=== PATIENT | female | born 2000 | race Caucasian/White ===

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

== ENCOUNTER → 2021-03-24 | Outpatient (CLI) | payer SELFPAY, OTHER, MEDICAID ==
[~2021-03-24] MED LIST changes: +ELIM5CRE2 TOP
== END ==
LOC: M LABSMTC 10:11
PROVIDERS: ATTEND Pediatrics
DX: Z20.822 Contact with and (suspected) exposure to COVID-19 (principal)

== ENCOUNTER → 2021-07-21 | Outpatient (REF) | payer OTHER ==
[2021-07-21 12:36] LABS: BASO % 0.4 % (0.0-1.0); EOS % 0.5 % (0.0-3.0); HEMATOCRIT 40.9 % (36.0-47.0); HEMOGLOBIN 13.3 g/dl (12.0-15.5); LYMPH # 2.4 10^3/uL (1.5-5.0); LYMPH % 28.6 % (24.0-44.0); MEAN CORPUSCULAR HEMOGLOBIN 30.9 pg (27.0-33.0); MEAN CORPUSCULAR HGB CONC 32.5 g/dl (32.0-36.5); MEAN CORPUSCULAR VOLUME 94.9 fl (80.0-96.0); MONO # 0.6 10^3/uL (0.0-0.8); MONO % 7.1 % (2.0-8.0); NEUTROPHILS # 5.3 10^3/uL (1.5-8.5); PLATELET COUNT, AUTOMATED 325 10^3/uL (150-450); RED BLOOD COUNT 4.31 10^6/uL (4.00-5.40); WHITE BLOOD COUNT 8.3 10^3/uL (4.0-10.0)
[2021-07-21 17:05] LABS: ALBUMIN 3.9 GM/DL (3.2-5.2); ALT/SGPT 16 U/L (12-78); BILIRUBIN,TOTAL 0.6 MG/DL (0.2-1.0); BLOOD UREA NITROGEN 5 MG/DL (7-18); CALCIUM LEVEL 9.3 MG/DL (8.5-10.1); CARBON DIOXIDE LEVEL 25 MEQ/L (21-32); CHLORIDE LEVEL 104 MEQ/L (98-107); CREATININE FOR GFR 0.54 MG/DL (0.55-1.30); GLUCOSE, FASTING 89 MG/DL (70-100); HCG, SERUM QUANTITATIVE 43157 MIU/ML; POTASSIUM SERUM 4.2 MEQ/L (3.5-5.1); SODIUM LEVEL 138 MEQ/L (136-145); TOTAL PROTEIN 7.4 GM/DL (6.4-8.2)
== END ==
LOC: M SFHCADAM 09:54
PROVIDERS: ATTEND Family Medicine
DX: Z00.00 Encounter for general adult medical examination without abnormal findings (principal); N92.6 Irregular menstruation, unspecified

== ENCOUNTER → 2021-08-18 | Outpatient (CLI) | payer OTHER ==
[2021-08-18 18:11] LABS: HEMATOCRIT 36.6 % (36.0-47.0); HEMOGLOBIN 12.3 g/dl (12.0-15.5); MEAN CORPUSCULAR HEMOGLOBIN 31.6 pg (27.0-33.0); MEAN CORPUSCULAR HGB CONC 33.6 g/dl (32.0-36.5); MEAN CORPUSCULAR VOLUME 94.1 fl (80.0-96.0); PLATELET COUNT, AUTOMATED 313 10^3/uL (150-450); RED BLOOD COUNT 3.89 10^6/uL (4.00-5.40); WHITE BLOOD COUNT 10.6 10^3/uL (4.0-10.0)
[2021-08-18 19:14] LABS: HEPATITIS C VIRUS ABY INDEX < 0.0 INDEX (<0.8); HIV 1&2 SCREEN CENTAUR NEGATIVE (NEGATIVE)
[2021-08-18 19:39] LABS: GC DNA AMPLIFICATION NEGATIVE (NEGATIVE)
== END ==
LOC: M PLALAB 14:19
PROVIDERS: ATTEND Obstetrics & Gynecology
DX: Z34.90 Encounter for supervision of normal pregnancy, unspecified, unspecified trimester (principal)

== ENCOUNTER → 2021-10-16 | Outpatient (CLI) | payer OTHER ==
--- NOTE | 2021-10-16 11:02 | REP ---
INDICATION: ANATOMY COMPARISON: None. TECHNIQUE: Transabdominal obstetrical ultrasound with color Doppler evaluation. FINDINGS: Examination demonstrates a single live intrauterine in breech presentation. motion is identified by technologist. Placenta is noted posterior and grade 1 without evidence for placenta previa or abruption. Amniotic fluid volume is normal. Cervix measures 3.7 cm in length and appears closed.. Selected gestational age: Nineteen weeks 4 days with TALI 03/08/20[birth year]. Gestational age by current measurements 19 weeks 0 days with TALI is 03/12/2022. FHR equals 149 beats per minute. BPD: 4.1 cm; 18 weeks 3 days; is 21% HC: 16.6 cm; 19 weeks 2 days; 41% AC: 13.9 cm; there is 19 weeks 2 days; 44% FL: 3.0 cm; 19 weeks 3 days; 45% HL: 2.8 cm; 19 weeks 1 day; 43% HC/AC: 1.19 Estimated weight 285 grams (31stpercentile). Anatomical assessment demonstrates normal structures including cranium, choroid plexus, cavum, cerebellum/posterior fossa, facial features, lungs, four-chamber heart/ventricular outflow tracts, diaphragm, stomach, cord insertion/three-vessel cord, kidneys/bladder, spine, and extremities. IMPRESSION: Single live intrauterine in breech presentation demonstrating appropriate estimated weight. Anatomical assessment is complete and normal. <Electronically signed by Leroy Fuentes > 10/16/21 4712
== END ==
LOC: M WHC 08:55
PROVIDERS: ATTEND Obstetrics & Gynecology
DX: Z34.02 Encounter for supervision of normal first pregnancy, second trimester (principal); Z3A.19 19 weeks gestation of pregnancy

== ENCOUNTER → 2021-12-08 | Outpatient (CLI) | payer OTHER | LOC: M PLALAB 10:50 | PROVIDERS: ATTEND Obstetrics & Gynecology | DX: Z36.89 Encounter for other specified antenatal screening (principal); Z3A.24 24 weeks gestation of pregnancy ==

== ENCOUNTER → 2021-12-29 | Outpatient (CLI) | payer OTHER | LOC: M LAB 08:11 | PROVIDERS: ATTEND Specialist | DX: R73.09 Other abnormal glucose (principal) ==

== ENCOUNTER 2022-03-06 18:07 | Outpatient (CLI) | payer OTHER ==
[~2022-03-06] VITALS: Ht 165.1 cm; Wt 105.3 kg
[2022-03-06 18:24] VITALS: BP 137/87
[2022-03-06] MEDS ORDERED: CLAR10CA3 PO (18:33)
[2022-03-06] MEDS ORDERED: PRENTAB7 PO (18:33)
[2022-03-06] MEDS ORDERED: OMEP40CA4 PO (18:33)
[2022-03-06 18:44] VITALS: BP 138/89
[2022-03-06] MEDS ORDERED: HOME MED LIST COMPLETE! XX SCH (18:55)
[2022-03-06 19:18] VITALS: BP 139/95
[2022-03-06 20:46] VITALS: BP 127/63
== END 2022-03-06 21:15 | disposition home or self-care (01) ==
LOC: M LDO 18:07
PROVIDERS: ATTEND Advanced Practice Midwife
DX: O60.03 Preterm labor without delivery, third trimester (principal); O99.213 Obesity complicating pregnancy, third trimester; E66.9 Obesity, unspecified; Z3A.39 39 weeks gestation of pregnancy